=== PATIENT | male | born 1940 | race Caucasian/White ===

== ENCOUNTER 2018-12-19 12:48 | Emergency (ER) | payer OTHER, MEDICARE ==
[2018-12-19 12:57] VITALS: BP 157/87
--- NOTE | 2018-12-19 13:19 | EDPHY ---
H & P Stated Complaint: Bilat ankle dermatitis x3mos, pruritis. Time Seen by Provider: 12/19/18 13:07 HPI/ROS: CHIEF COMPLAINT: Skin dermatitis, pimples around the ankles HISTORY OF PRESENT ILLNESS: This is a 78-year-old male, traveling from [place] to [place], who presents emergency department with concerns regarding a skin rash that he has had for about 3 months. Patient reports developing patchy, very itchy, skin rash on the lower legs bilaterally. He did see a gas leak tester in [place] diagnosed him with dermatitis. He was given hydrocortisone 2% cream which she has been using. He reports that improves the itching but has not cleared up the rash. While he was here in [place], family member advised him to begin using ketoconazole 2%. The complaints of the itching is unbearable at night. No widespread rash. No fevers, chills, nausea, vomiting, recent travel. REVIEW OF SYSTEMS: A comprehensive 10 system review of systems was reviewed and is otherwise negative aside from elements mentioned in the history of present illness and medical decision making. PAST MEDICAL HISTORY: PTSD. SOCIAL HISTORY: Here with his . Traveling from [place] to [place]. Leaving for [place] tomorrow. GENERAL APPEARANCE: Pleasant, alert, oriented. Vital signs reviewed. FOCUSED EXAM OF lower extremities: Patient has scattered, patchy areas approximately 1/2 to 1 cm in diameter erythematous, slightly scaly skin. No warmth, no confluence of erythema. No signs of cellulitis. Normal capillary refill. Good dorsalis pedis and posterior tibial pulses. Patient has a total of probably 7 patches on his lower extremities, mid calf to ankles. Neurovascular exam: Good capillary refill, normal motor exam, normal neurologic exam. - Medical/Surgical History Hx Asthma: No Hx Chronic Respiratory Disease: No Hx Diabetes: No Hx Cardiac Disease: No Hx Renal Disease: No Hx Cirrhosis: No Hx Alcoholism: No Hx HIV/AIDS: No Hx Splenectomy or Spleen Trauma: No Other PMH: TURP x3 - Social History Smoking Status: Never smoked Constitutional: Initial Vital Signs Temperature (C) 36.6 C 12/19/18 12:54 Heart Rate 68 12/19/18 12:54 Respiratory Rate 18 12/19/18 12:54 Blood Pressure 157/87 H 12/19/18 12:54 O2 Sat (%) 96 12/19/18 12:54 O2 Delivery Mode Room Air Allergies/Adverse Reactions: prednisolone Allergy (Verified 12/19/18 12:54) Home Medications: Medication Instructions Recorded Triamcinolone 0.1% [Triamcinolone 1 josh TP TID #1 tube 12/19/18 0.1% Cream] Medical Decision Making ED Course/Re-evaluation: Discussed with the patient and the at length the possibility of nonspecific dermatitis versus tinea infection. As they have been using hydrocortisone for several weeks with little improvement, I recommend that they begin using ketoconazole exclusively to see if this helps improve the rash. We discussed ways to handle the itching including oral Benadryl, oral nonsedating antihistamines, and Benadryl cream. Patient did ask for prescription of stronger topical steroid was given prescription for triamcinolone. He and his understand that he should not be using this until he has use the ketoconazole for 5-7 days period. Follow up with gas leak tester to perform a DAGOBERTO scraping. Differential Diagnosis: Differential diagnoses for the patient's symptom complex was considered including but not limited to atopic dermatitis, tinea, poison mundo. Departure - Departure Disposition: Home, Routine, Self-Care Clinical Impression: Rash, Dermatitis, Tinea Condition: Good Instructions: Tinea Corporis (ED), Dermatitis (ED) Additional Instructions: The the cause of your rash may be either a nonspecific dermatitis or a yeast infection on the skin. Since you had tried steroid cream, which is the treatment for dermatitis, without much help, I would recommend that you begin treating the rash with ketoconazole. Apply ketoconazole 2% cream 3 times a day to the rash. If you're bothered with significant itching, I recommend oral Benadryl especially at night, and Benadryl cream during the day. I have given you a prescription of triamcinolone which is a stronger steroid. Please be aware that steroid cream used on a yeast infection may make it worse. That is why I recommend that you use the ketoconazole consistently for several days to see if that is improving the rash. If you do need to use both of the creams at the same time, be sure that you have apply the ketoconazole and waited several hours before applying the steroid cream (either the hydrocortisone 2% or the triamcinolone 0.1%). Please follow up with the gas leak tester to have a definitive diagnosis when you reach [place]. Referrals: NONE *PRIMARY CARE P,. [Primary Care Provider] - As per Instructions Prescriptions: Triamcinolone 0.1% [Triamcinolone 0.1% Cream] 1 josh TP TID #1 tube
== END 2018-12-19 13:58 | disposition home or self-care (01) ==
DX: R21 Rash and other nonspecific skin eruption (principal); L30.9 Dermatitis, unspecified